=== PATIENT | male | born 1995 | race African-American/Black ===

== ENCOUNTER 2020-11-24 09:36 | Emergency (ER) | payer SELFPAY ==
[2020-11-24 09:43] VITALS: BP 144/66
--- NOTE | 2020-11-24 10:18 | ER Document Report ---
HPI - HPI Time Seen by Provider: 11/24/20 10:14 Pain Level: Denies Notes: CHIEF COMPLAINT: Work note for finger injury HPI: 25-year-old male who is right-hand dominant presenting for a work note to return to work after he stubbed his left third finger on pavement playing basketball 4 days ago. He forgot that work had requested he get a note so is now coming here to get a note. Denies any pain or discomfort to the finger or hand at this time ROS: See HPI - all other systems were reviewed and are otherwise negative Constitutional: no fever Integumentary: no rash Allergy: no hives Musculoskeletal: no extremity pain or swelling Neurological: no numbness/tingling, no weakness MEDICATIONS: I agree with the patient medications as charted by the RN. ALLERGIES: I agree with the allergies as charted by the RN. PAST MEDICAL HISTORY/PAST SURGICAL HISTORY: Reviewed and agree as charted by RN. SOCIAL HISTORY: Reviewed and agree as charted by RN. FAMILY HISTORY: No significant familial comorbid conditions directly related to patient complaint EXAM: Reviewed vital signs as charted by RN. CONSTITUTIONAL: Alert and oriented and responds appropriately to questions. Well-appearing; well-nourished HEAD: Normocephalic; atraumatic EYES: Conjunctivae clear, sclerae non-icteric ENT: normal nose; no rhinorrhea; moist mucous membranes NECK: Supple without meningismus CARD: symmetric distal pulses RESP: Normal chest excursion without splinting or tachypnea ABD/GI: non-distended BACK: The back appears normal EXT: Normal ROM in all joints; non-tender to palpation; no cyanosis, no effusions, no edema SKIN: Normal color for age and race; warm; dry; good turgor; no acute lesions noted NEURO: Moves all extremities equally; Motor and sensory function intact PSYCH: The patient's mood and manner are appropriate. Grooming and personal hygiene are appropriate. MDM: 25-year-old male requesting a work note to return to work after an injury to the left third finger 4 days ago. Has full range of motion with no pain declines x-ray imaging requested not to go back to work. - CONSTITUTIONAL Constitutional: DENIES: Fever, Chills - REPRODUCTIVE Reproductive: DENIES: : - MUSCULOSKELETAL Musculoskeletal: REPORTS: Extremity pain - left 3rd finger Past Medical History - Social History Smoking Status: Never Smoker Chew tobacco use (# tins/day): No Frequency of alcohol use: None Drug Abuse: None Family History: Reviewed & Not Pertinent Patient has homicidal ideation: No Course - Vital Signs Vital signs: Temp Pulse Resp BP Pulse Ox 98.1 F 59 L 16 144/66 H 99 11/24/20 09:42 11/24/20 09:42 11/24/20 09:42 11/24/20 09:42 11/24/20 09:42 - Laboratory Results Critical Laboratory Results Reviewed: No Critical Results - Radiology Results Critical Radiology Results Reviewed: No Critical Results Discharge - Discharge Clinical Impression: Injury of finger of left hand Qualifiers: Encounter type: initial encounter Qualified Code(s): S69.92XA - Unspecified injury of left wrist, hand and finger(s), initial encounter Condition: Stable Disposition: HOME, SELF-CARE Additional Instructions: Follow-up with primary care provider as needed Forms: Return to Work Referrals: GARY ALBA PA-C [Primary Care Provider] - Follow up as needed
== END 2020-11-24 10:20 | disposition home or self-care (01) ==
LOC: ER 09:36
DX: S69.92XA Unspecified injury of left wrist, hand and finger(s), initial encounter (principal); W22.09XA Striking against other stationary object, initial encounter; Y99.0 Civilian activity done for income or pay
CPT/HCPCS: 99281